=== PATIENT | male | born 2000 | race Caucasian/White ===

== ENCOUNTER → 2022-01-02 | Outpatient (CLI) | payer OTHER ==
[~2022-01-02] MED LIST: AMOCLA500 PO; HYDACE5 PO; ONDA4ODT MM
== END | disposition home or self-care (01) ==
LOC: LAB 17:58 → LAB SHORT 17:58
DX: Z11.3 Encounter for screening for infections with a predominantly sexual mode of transmission (principal)
CPT/HCPCS: 86592

== ENCOUNTER 2024-03-06 09:38 | Inpatient (IN) | payer OTHER ==
[~2024-03-06] VITALS: Ht 180.3 cm; Wt 66.7 kg
[2024-03-06] MEDS ORDERED: Midazolam HCl 1MG / ML 2ML Vial IV ONE (10:10)
[2024-03-06] MEDS ORDERED: Midazolam HCL 1 MG/ML 5MLVIAL IV ONE (10:10)
[2024-03-06 13:10] VITALS: BP 123/85
[2024-03-06] MEDS ORDERED: FentaNYL Citrate 50 MCG/ML 2 ML Injection IV PRN (13:15)
[2024-03-06] MEDS ORDERED: LORazepam 2 MG/ML 1ML Injection IV PRN (13:15)
[2024-03-06] MEDS ORDERED: ChlordiazePOXIDE 25 MG Cap PO PRN (13:15)
[2024-03-06] MEDS ORDERED: FLU VACC TS2024-25(6MOS UP)/PF 45 MCG/0.5 ML SYRINGE IM PRN (14:10)
[2024-03-06 15:58] VITALS: BP 131/71
[2024-03-06] MEDS ORDERED: HYDROcodone 5-APAP 325 TAB PO PRN (16:40)
--- NOTE | 2024-03-06 18:41 | NUR ---
ADMISSION/SHIFT SUMMARY: PT ADMITTED F/ER, ARRIVES TO UNIT APPROX 1310, TRANSFERS SELF F/GURNEY TO BED W/OUT DIFFICULTY. PT IS A&Ox4, ANSWERS QUESTIONS APPROPRIATELY, IS COOPERATIVE W/CARE. PT REPORTS IMPROVED SOB SINCE ADMISSION, THORAVENT CONTINUES TO R CHEST WALL, SET TO SUCTION AT -30 CMH20, MINIMAL RED OUTPUT IN TUBING. PT ENDORSES PAIN AROUND INSERTION SITE, MEDICATED x1 PER EMAR, TOLERATING WELL. DR CUI TO BEDSIDE THIS EVENING, CURRENT PLAN IS TO MONITOR PT OVERNIGHT AND REPEAT CHEST XRAY IN AM. AT THIS TIME, PT IS RESTING IN BED W/VISITORS IN ROOM. WILL CONTINUE TO MONITOR AND TREAT ACCORDINGLY UNTIL CHANGE OF SHIFT.
[2024-03-06 20:36] VITALS: BP 118/72
[2024-03-06 23:34] VITALS: BP 115/77
[2024-03-07 04:54] VITALS: BP 120/72
--- NOTE | 2024-03-07 05:50 | NUR ---
SHIFT SUMMARY PATIENT ALERT AND ORIENTED X4. HAD NO COMPLAINTS OF PAIN OR SHORTNESS OF BREATH. THORAVENT IN PLACE CONNECTED TO SUCTION. PATIENT PROVIDED WITH INCENTIVE SPIROMETER AND PATIENT DEMONSTRATED KNKOWLEGE OF USE. PATIENT ON ROOM AIR WITH SPO2 >90%. VITAL SIGNS STABLE. NO ACUTE ISSUES NOTED OVERNIGHT. WILL CONTINUE TO MONITOR. CALL LIGHT WITHIN REACH.
[2024-03-07 07:57] VITALS: BP 120/80
[2024-03-07 12:57] VITALS: BP 121/71
[2024-03-07 17:01] VITALS: BP 115/76
--- NOTE | 2024-03-07 18:01 | NUR ---
SHIFT SUMMARY: NO ACUTE CHANGES THIS SHIFT. PT CONTINUES A&Ox4, ABLE TO MAKE NEEDS KNOWN. PT REPORTS IMPROVED OVERALL FEELING, DENIES SOB/CP. O2 SATS >95% ON RA. SR ON MONITOR W/RATE 60s-70s. REPEAT CHEST XRAY SHOWS PNEUMOTHORAX IN NEARLY RESOLVED. DR CUI TO BEDSIDE TODAY TO DISCUSS PLAN OF CARE, PT TO STAY ANOTHER NIGHT AND REEVALUATE TOMORROW. NO CHANGES TO THORAVENT/SUCTION SET UP, SUCTION CONTINUES AT -30 CMH2O, NO AIR BUBBLES NOTED. ALL OTHER SYSTEMS WNL. PT RESTING IN BED W/CALL LIGHT IN REACH.
[2024-03-07 20:12] VITALS: BP 113/71
[2024-03-07 23:51] VITALS: BP 114/68
[2024-03-08 04:42] VITALS: BP 110/70
--- NOTE | 2024-03-08 06:06 | NUR ---
SHIFT SUMMARY PATIENT ALERT AND ORIENTED X4. HAD NO COMPLAINTS OF PAIN OR SHORTNESS OF BREATH. ON ROOM AIR WITH SPO2 >90%. THORAVENT IN PLACE. VITAL SIGNS STABLE. NO ACUTE ISSUES NOTED OVERNIGHT. WILL CONTINUE TO MONITOR. CALL LIGHT WITHIN REACH.
[2024-03-08 07:31] VITALS: BP 123/74
--- NOTE | 2024-03-08 13:01 | NUR ---
ARRIVAL TO SURGICAL UNIT AMBULATES FROM PCU TO NEW ROOM. R CHEST HAS THORAVENT CT TO SUCTION. SPEAKING IN FULL SENTENCES, LAUGHING. LUNGS CLEAR T/O. DENIES SOB OR TROUBLE TAKING DEEP BREATHS. SITTING AT SIDE OF BED.
[2024-03-08 13:05] VITALS: BP 119/76
[2024-03-08 15:44] VITALS: BP 115/68
--- NOTE | 2024-03-08 16:25 | NUR ---
SHIFT SUMMARY SINCE ARRIVAL TO UNIT, PT HAS MOVED AROUND WELL IN ROOM w/ NO SOB OR RESP ISSUES. DENIES PAIN. NO DRAINAGE FROM CT EXCEPT WHAT WAS IN TUBING ON ARRIVAL. PT PLEASANTLY INSISTANT THAT HE IS GOING HOME TOMORROW.
[2024-03-08 19:20] VITALS: BP 115/62
[2024-03-09 04:05] VITALS: BP 112/61
--- NOTE | 2024-03-09 04:11 | NUR ---
SHIFT SUMMARY PT ABLE TO SLEEP MOST OF SHIFT. CHEST TUBE STILL HOOKED TO WALL SX AT -30. NO DRAINAGE NOTED. LUNG SOUNDS CLEAR T/O. PT IND IN THE ROOM. DENIES ANY NEEDS. PLAN TO WATER SEAL CHEST TUBE THIS AM, THEN GET REPEAT X-RAY IN AFTERNOON. VSS. NO OTHER CONCERNS AT THIS TIME, CALL LIGHT WITHIN REACH
[2024-03-09 07:09] VITALS: BP 117/64
[2024-03-09 15:22] VITALS: BP 120/71
--- NOTE | 2024-03-09 16:32 | NUR ---
PT DISCHARGED AT 1626. PT PROVIDED WITH WRITTEN AND VERBAL DISCHARGE INSTRUCTIONS. PT DENIED PAIN. VSS. PT REQUESTED THAT STAFF DISCARD OF VAPE PEN, HE DOES NOT WISH TO TAKE IT HOME. PT AMBULATED OUT INDEPENDENTLY APPROXIMATELY 1626
== END 2024-03-09 16:28 | disposition home or self-care (01) | DRG 201 ==
LOC: ER 09:38 → PCU 09:39 → SURS 03-07 16:01 → PCU 03-08 09:10 → SURS 03-08 13:08
PROVIDERS: ADMIT Surgery
PROC: 0W9930Z Drainage of Right Pleural Cavity with Drainage Device, Percutaneous Approach (ICD-10-PCS; principal; 2024-03-06)
DX: J93.83 Other pneumothorax (principal); F10.20 Alcohol dependence, uncomplicated; F17.290 Nicotine dependence, other tobacco product, uncomplicated; R06.02 Shortness of breath; J93.9 Pneumothorax, unspecified
CPT/HCPCS: 32551; 71045; 71046; 99285-25; A9270; G0378; J2250